=== PATIENT | female | born 1985 | race Caucasian/White ===

== ENCOUNTER 2017-01-13 22:35 | Emergency (ER) | payer OTHER ==
[2017-01-13 22:48] VITALS: TEMP 98.4
--- NOTE | 2017-01-13 23:12 | ED ---
General Adult HPI - General Chief complaint: Recheck/Abnormal Lab/Rx Stated complaint: Rectal Tumor Time Seen by Provider: 01/13/17 23:11 Source: patient Mode of arrival: ambulatory Limitations: no limitations - History of Present Illness Initial comments: Kapil is a 31-year-old obese female with past medical history of neurofibroma of the L5 region which was operated on previously at [facility] in [place]. She reports that after her previous operation last year she was advised that she had a recurrent tumor at the L5 region. She reports that last year when she was being evaluated the tumor was initially approximately 2.5 in, it grew to 6.5 in at which time she was told by radiation oncologist that they could do radiation or chemotherapy but that the tumor had grown too fast. Patient reports that her and her significant other then decided that they were going to move back to [place] to seek different care for her tumor. Patient reports that she moved to [place] last week, she has not established any type of medical care here yet. She was seen at another hospital's emergency department twice over the weekend for evaluation of worsening low back pain. Patient reports that when evaluated at outside facility a computed tomography scan was completed which revealed she had a tumor that he grown to the size of 11.5 inches. Patient reports that she was discharged from the outside facility with Toradol but her pain has continued to worsen. She reports that she will develop a sudden urge to urinate and has had incidences of urinating on herself because the urge comes on so suddenly and she cannot get to the restroom fast enough due to her back pain. She reports that she had symptoms similar to this since her previous surgery however she feels they are worsened by the pain. Patient also reports worsening pain when she sits which she states makes urinating on the toilet unpleasant for her. She reports that she feels numb on her right butt cheek. 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 Due to this her right leg is somewhat atrophic. She reports that she has had chronic pain since her previous surgery and was previously on Percocet. She reports it for support. Of time she has tried Neurontin as well as Lyrica with minimal improvement in her neuropathic her chronic back pain. Patient reports her pain is making her feel nauseated, she's had decreased oral intake due to the nausea. She denies fevers, chills, chest pain, shortness of breath, abdominal pain she reports normal bowel movements, she denies any dysuria or hematuria though she does report urinary urgency and urinary incontinence. Patient states that she does not feel any of her neurologic symptoms are new or concerning, she is here for pain control and does not feel she needs emergent evaluation by a neurosurgeon as her symptoms have been persistent for some time. - Related Data Home Medications Medication Instructions Recorded Confirmed Docusate [Colace] 300 mg PO DAILY 01/13/17 01/13/17 Ketorolac [Toradol] 10 mg PO Q6HR PRN 01/13/17 01/13/17 Pregabalin [Lyrica] 150 mg PO TID 01/13/17 01/13/17 oxyCODONE-APAP 7.5-325MG [Percocet 1 tab PO Q4HR PRN 01/13/17 01/13/17 7.5-325 mg] Previous Rx's Medication Instructions Recorded Pregabalin [Lyrica] 150 mg PO TID #60 capsule 01/14/17 Allergies Allergy/AdvReac Type Severity Reaction Status Date / Time adhesive AdvReac Rash/Hives Verified 01/13/17 23:16 latex AdvReac Rash/Hives Verified 01/13/17 23:16 Review of Systems ROS Statement: Those systems with pertinent positive or pertinent negative responses have been documented in the HPI. ROS Other: All systems not noted in ROS Statement are negative. Constitutional: Denies: fever, chills Eyes: Denies: vision change ENT: Denies: ear pain, throat pain Respiratory: Denies: cough, dyspnea Cardiovascular: Denies: chest pain, palpitations Endocrine: Reports: fatigue Gastrointestinal: Reports: nausea. Denies: abdominal pain Genitourinary: Reports: urgency. Denies: dysuria, hematuria Musculoskeletal: Reports: back pain Skin: Denies: rash, lesions Neurological: Reports: headache, weakness (right lower extremity), numbness ( right lower extremity, perineum ), paresthesias (right lower extremity, perineum ) Psychiatric: Reports: anxiety Hematological/Lymphatic: Denies: easy bleeding, easy bruising Past Medical History Additional Past Medical History / Comment(s): non-cancerous tumor (neurofibroma) History of Any Multi-Drug Resistant Organisms: None Reported Additional Past Surgical History / Comment(s): tumor removal x 2 Past Psychological History: No Psychological Hx Reported Smoking Status: Current every day smoker Past Alcohol Use History: None Reported Past Drug Use History: None Reported General Exam Limitations: no limitations General appearance: alert, in distress, obese Head exam: Present: atraumatic, normocephalic Eye exam: Present: normal appearance, PERRL ENT exam: Present: normal exam, normal oropharynx Neck exam: Present: normal inspection Respiratory exam: Present: normal lung sounds bilaterally. Absent: respiratory distress, wheezes Cardiovascular Exam: Present: regular rate, normal rhythm GI/Abdominal exam: Present: soft. Absent: distended Rectal exam: Present: normal rectal tone External exam: Present: normal external exam Extremities exam: Present: other (drop foot right foot, right leg atrophic) Back exam: Present: paraspinal tenderness, vertebral tenderness, other (well healed midline surgical scar in lumbar region ) Neurological exam: Present: alert, oriented X3, abnormal gait (antalgic ) Expanded Sensory exam: Lower Extremity Light Touch: Abnormal Right, Lower Extremity Pin Prick: Abnormal Right DTR: Patellar (R): 1+, Patellar (L): 3+, Achilles Tendon (R): 1+, Achilles Tendon (L): 3+ Eye Response: (4) open spontaneously Motor Response: (6) obeys commands Verbal Response: (5) oriented Psychiatric exam: Present: anxious Skin exam: Present: warm, dry, intact Course Vital Signs 01/13/17 01/14/17 22:43 00:11 Temperature 98.4 F Pulse Rate 75 56 L Respiratory 18 16 Rate Blood Pressure 142/79 142/64 O2 Sat by Pulse 97 96 Oximetry - Reevaluation(s) Reevaluation #1: She reported transient improvement in her pain after IV morphine. However she states her pain has persisted 01/14/17 01:02 Reevaluation #2: Patient reevaluated, reports some improvement after Dilaudid. Patient states that she knows she is going to live with chronic pain until she is seen by a neurosurgeon, she doesn't feel there is any benefit to an x-ray and she is okay being discharged home. She requests a refill of her Lyrica. 01/14/17 01:23 Medical Decision Making - Medical Decision Making Patient was seen and evaluated, history was obtained from the patient and significant other at bedside. Patient with a history of neurofibroma of the L5 region with 2 previous surgeries and recurrence of the tumor. Patient with resultant right sided lower extremity neuropathy with atrophy of the muscles as well as intermittent urinary incontinence Patient no concern about her persistent neurologic symptoms. Only concern with her pain. I advised her we will get basic labs and needed a urine sample to ensure that her urinary incontinence is not exacerbated by possible urinary tract infection Patient received IV morphine and reported transient improvement in her pain. However she reports that her pain returned. IV Dilaudid was ordered Patient reports improvement after IV Dilaudid, she states that she no she will have to live with this chronic pain and that she is agreeable to discharge home , requests a refill of her Lyrica she is currently out of this. A she was provided with 4 neurosurgeons to call for follow-up, she has concerns about follow-up because she only has state insurance and does not have her private pay insurance yet. She reports that her insurance will be active on January 28. I advised her to call to establish care to get an appointment as soon as possible and so that her neurosurgeon that she will be following up with has time to receive her records from outside facility. Patient and are agreeable to this. - Lab Data Result diagrams: 01/14/17 00:08 01/14/17 00:08 Lab Results 01/14/17 01/14/17 Range/Units 00:08 00:08 WBC 8.8 (3.8-10.6) k/uL RBC 4.71 (3.80-5.40) m/uL Hgb 15.0 (11.4-16.0) gm/dL Hct 45.9 (34.0-46.0) % MCV 97.4 (80.0-100.0) fL MCH 31.9 (25.0-35.0) pg MCHC 32.7 (31.0-37.0) g/dL RDW 13.5 (11.5-15.5) % Plt Count 250 (150-450) k/uL Neutrophils % 73 % Lymphocytes % 20 % Monocytes % 5 % Eosinophils % 1 % Basophils % 0 % Neutrophils # 6.4 (1.3-7.7) k/uL Lymphocytes # 1.8 (1.0-4.8) k/uL Monocytes # 0.4 (0-1.0) k/uL Eosinophils # 0.1 (0-0.7) k/uL Basophils # 0.0 (0-0.2) k/uL Sodium 139 (137-145) mmol/L Potassium 4.3 (3.5-5.1) mmol/L Chloride 106 (98-107) mmol/L Carbon Dioxide 23 (22-30) mmol/L Anion Gap 10 mmol/L BUN 10 (7-17) mg/dL Creatinine 0.70 (0.52-1.04) mg/dL Est GFR (MDRD) Af Amer >60 (>60 ml/min/1.73 sqM) Est GFR (MDRD) Non-Af >60 (>60 ml/min/1.73 sqM) Glucose 99 (74-99) mg/dL Calcium 9.8 (8.4-10.2) mg/dL Total Bilirubin 0.3 (0.2-1.3) mg/dL AST 15 (14-36) U/L ALT 28 (9-52) U/L Alkaline Phosphatase 70 (38-126) U/L Total Protein 7.4 (6.3-8.2) g/dL Albumin 4.5 (3.5-5.0) g/dL Disposition Clinical Impression: Chronic back pain, Neuropathic pain Disposition: HOME SELF-CARE Condition: Fair Instructions: Acute Low Back Pain (ED), Lumbar Radiculopathy (ED) Referrals: None,Stated [Primary Care Provider] - 1-2 days Armani Pulido MD [REFERRING] - 1-2 days Jeffrey Hutton MD [REFERRING] - 1-2 days Jacinto Duarn MD [STAFF PHYSICIAN] - 1-2 days Francois Wiseman MD [REFERRING] - 1-2 days Time of Disposition: 01:27
[2017-01-13] MEDS ORDERED: SODIUM CHLORIDE 0.9% 1,000 ML IV ONE (23:30)
[2017-01-13] MEDS ORDERED: MORPHINE SULFATE 2 MG/ML SYRINGE IV ONE (23:30)
[2017-01-13] MEDS ORDERED: ONDANSETRON 4 MG/2 ML VIAL IVP STA (23:30)
[2017-01-14 00:19] LABS: Basophils % (A) 0 %; CH 33.3; CHCM 34.3; Eosinophils # (A) 0.1 k/uL (0-0.7); Eosinophils % (A) 1 %; HCT 45.9 % (34.0-46.0); HDW 2.36; Luc # (Auto) 0.11; Luc % (Auto) 1; Lymphocytes # (A) 1.8 k/uL (1.0-4.8); Lymphocytes % (A) 20 %; MCH 31.9 pg (25.0-35.0); MCHC 32.7 g/dL (31.0-37.0); MCV 97.4 fL (80.0-100.0); Mean Platelet Volume 7.8; Monocytes # (A) 0.4 k/uL (0-1.0); Monocytes % (A) 5 %; Neutrophils # (A) 6.4 k/uL (1.3-7.7); Neutrophils % (A) 73 %; RBC 4.71 m/uL (3.80-5.40); RDW 13.5 % (11.5-15.5); WBC 8.8 k/uL (3.8-10.6); WBC (Perox) 8.71
[2017-01-14 00:29] LABS: ALT 28 U/L (9-52); AST 15 U/L (14-36); Alkaline Phosphatase 70 U/L (38-126); Anion Gap 10 mmol/L; Blood Urea Nitrogen 10 mg/dL (7-17); Calcium 9.8 mg/dL (8.4-10.2); Carbon Dioxide 23 mmol/L (22-30); Chloride 106 mmol/L (98-107); Glucose 99 mg/dL (74-99); Non-African American GFR(MDRD) >60 (>60 ml/min/1.73 sqM); Potassium 4.3 mmol/L (3.5-5.1); Sodium 139 mmol/L (137-145); Total Bilirubin 0.3 mg/dL (0.2-1.3); Total Protein 7.4 g/dL (6.3-8.2)
[2017-01-14] MEDS ORDERED: HYDROmorphone 1 MG/ML 1 ML SYRINGE IVP STA (00:30)
[2017-01-14 01:26] LABS: Amorphous Sediment,Urine Rare /hpf; Appearance,Urine Cloudy (Clear); Bacteria,Urine Rare /hpf; Bilirubin,Urine Negative (Negative); Glucose,Urine (UA) Negative (Negative); Ketones,Urine Negative (Negative); Leukocyte Esterase,Urine Negative (Negative); Mucus,Urine Rare /hpf; Nitrite,Urine Negative (Negative); PH, Urine 6.5 (5.0-8.0); Particle Count 5726; Protein,Urine Negative (Negative); RBC,Urine <1 /hpf (0-5); Specific Gravity,Urine 1.005 (1.001-1.035); Squamous Epithelial Cell,Urine 13 /hpf (0-4); UA Billing (MACRO vs. MICRO) MICRO; Urobilinogen,Urine <2.0 mg/dL (<2.0); WBC,Urine 2 /hpf (0-5)
[2017-01-14 01:45] VITALS: BP 142/67; PULSE 75; RESP 18
== END 2017-01-14 02:02 | disposition home or self-care (01) ==
LOC: EC 22:35
DX: G89.29 Other chronic pain (principal); M54.5 Low back pain; G57.91 Unspecified mononeuropathy of right lower limb; G60.0 Hereditary motor and sensory neuropathy; F41.9 Anxiety disorder, unspecified; M21.371 Foot drop, right foot; D37.5 Neoplasm of uncertain behavior of rectum; R32 Unspecified urinary incontinence; R39.15 Urgency of urination; R11.0 Nausea; E66.9 Obesity, unspecified; F17.200 Nicotine dependence, unspecified, uncomplicated; Z79.899 Other long term (current) drug therapy; Z91.040 Latex allergy status; Z91.09 Other allergy status, other than to drugs and biological substances; Z98.890 Other specified postprocedural states; Z68.39 Body mass index [BMI] 39.0-39.9, adult
CPT/HCPCS: 99284 ×2; 96374 ×2; 96375 ×3; 96361 ×3; 36415; 80053; 85025; 81001; 81025; J2405; J2270; J1170